=== PATIENT | male | born 1945 ===

== ENCOUNTER 2019-07-28 07:09 | Day surgery (SDC) | payer MEDICARE ==
[2019-07-28] MEDS ORDERED: Midazolam* 1 MG/ML 2 ML VIAL (2 MG) ONE ×2 (08:35→09:22)
[2019-07-28 10:05] VITALS: BP 111/75
--- NOTE | 2019-07-28 10:12 | OP ---
OPERATIVE NOTE: DATE OF OPERATION: 07/28/19 DATE OF : 45 SURGEON: Elian Khan M.D. PREOPERATIVE DIAGNOSIS: Cataract, right. POSTOPERATIVE DIAGNOSIS: Cataract, right. OPERATIVE PROCEDURE: Extracapsular cataract extraction with IOL, intraocular lens implant right eye. PROCEDURE: The patient was brought to the operating room after being given 1/2% Alcaine with epineph rine drops in the preoperative area. The eye was prepped and draped in the usual sterile fashion. S terile drape and eyelid speculum were placed. Again, topical 1/2% Alcaine with epinephrine was given . A paracentesis incision was made at the 9 o'clock position with the No.75 blade. Clear cornea inc ision 2.2 x 2.2-mm was created at the 12 o'clock position starting at the anterior limbus using the 2 .2-mm keratome. The anterior chamber was irrigated with 0.4 mL of 1% non-preservative intracameral l idocaine and filled with DisCoVisc. A capsulorrhexis was completed using the cystotome and the Utrat a forceps. Hydrodissection was performed with balanced salt solution. The lens nucleus was removed w ith the Phacoemulsification handpiece without incident. Cortex was removed with the irrigation-aspir ation handpiece. The capsular bag was re-inflated using DisCoVisc and an [id number] implant was inser tonny with the shooter. The pupil was very small, so a Malyugin ring was used to dilate the pupil prio r to capsulorrhexis, removed after insertion of the lens. The irrigation-aspiration handpiece was us ed to remove all residual DisCoVisc. The eye was refilled with balanced salt solution and the wound checked and found to be watertight. Topical Maxitrol drops were given. Indication for complex cataract surgery: Pupil abnormalities requiring pupil dilation device. [id number]/[facility] #: [id number]
[2019-07-28] MEDS ORDERED: Proparacaine 0.5% OPHTH.SOL* 15 ML BTL ONE (12:24)
[2019-07-28] MEDS ORDERED: Lidocaine 1% MPF ** 5 ML VIAL ONE (12:24)
[2019-07-28] MEDS ORDERED: acetaZOLAMIDE TAB* 250 MG ONE (12:24)
[2019-07-28] MEDS ORDERED: Phenylephrine OPHTH SOL 2.5%* 2 ML ONE (12:24)
[2019-07-28] MEDS ORDERED: Neomycin/Polymy/Dex OPTH.SUSP* MAXITROL 0.1% 5 ML ONE (12:24)
[2019-07-28] MEDS ORDERED: Ketorolac 0.5% OPHTH (NF) 0.5 % 5 ML BTL ONE (12:24)
[2019-07-28] MEDS ORDERED: Cyclopentolate 1% OPTH.SOL* 2 ML BTL ONE (12:24)
[2019-07-28] MEDS ORDERED: Lidocaine 2% w/ EPI 1:200,000* 20 ML SDV VIAL ONE (12:24)
[2019-07-28] MEDS ORDERED: Povidone Iodine 5% OPTH* 30 ML BTL ONE (12:24)
== END 2019-07-28 09:57 | disposition home or self-care (01) ==
LOC: OREAST 07:09
PROVIDERS: ATTEND Specialist
DX: H25.811 Combined forms of age-related cataract, right eye (principal); H21.561 Pupillary abnormality, right eye; I25.10 Atherosclerotic heart disease of native coronary artery without angina pectoris; Z95.5 Presence of coronary angioplasty implant and graft; Z87.891 Personal history of nicotine dependence; Z79.01 Long term (current) use of anticoagulants
CPT/HCPCS: A9270-GY; J2250; V2632